=== PATIENT | female | born 1995 | race Caucasian/White ===

== ENCOUNTER 2019-04-13 19:45 | Outpatient (CLI) | payer OTHER ==
[~2019-04-13] VITALS: Ht 162.6 cm; Wt 90.1 kg
[2019-04-13] MEDS ORDERED: ACETAMINOPHEN 500 MG TAB PO STA (20:08)
[2019-04-13 20:16] VITALS: BP 102/61; PULSE 77; RESP 15
--- NOTE | 2019-04-13 22:02 | PN ---
Triage Information Date/Time Reason for visit: Abd/pelvic pain Weeks of Gestation 23-year-old 3 para 2 at 29 weeks and 4 days of gestation with estimated date of delivery June 25, 2019 Patient presents with chief complaint of abdominal pain and back pain Patient reports positive movement, denies vaginal bleeding and leaking fluid, denies uterine contractions /Para 3 para 2 Diabetes: none Hypertention: none Objective Vital Signs Date Temp Pulse Resp B/P (MAP) Pulse Ox O2 O2 Flow FiO2 Time Delivery Rate 04/13/19 98.2 77 15 102/61 Room Air 20:16 (75) Heart Rate: 140's Heart Rate Comments heart rate tracing category 1 Contractions: None Results/Medications Result Diagram: 04/13/192118 Results 24 hrs Laboratory Tests Test 04/13/19 19:45 04/13/19 21:19 Urine Color STRAW Urine Clarity CLEAR Urine pH 7.0 Urine Specific [place] 1.004 Urine Ketones NEGATIVE Urine Nitrite NEGATIVE Urine Bilirubin NEGATIVE Urine Urobilinogen NEGATIVE Urine Leukocyte Esterase 1+ H Urine Microscopic RBC 1 Urine Microscopic WBC 3 Urine Squamous Epithelial Cells FEW Urine Hemoglobin NEGATIVE Urine Glucose NEGATIVE Urine Total Protein NEGATIVE White Blood Count 7.8 Red Blood Count 3.40 L Hemoglobin 10.0 L Hematocrit 30.8 L Mean Corpuscular Volume 90.6 Mean Corpuscular Hemoglobin 29.4 Mean Corpuscular Hemoglobin Concent 32.5 Red Cell Distribution Width 13.0 Platelet Count 156 Mean Platelet Volume 10.4 Immature Granulocytes % 0.900 H Neutrophils % 66.6 Lymphocytes % 25.4 Monocytes % 6.7 Eosinophils % 0.3 Basophils % 0.1 Nucleated Red Blood Cells % 0.0 Immature Granulocytes # 0.070 H Neutrophils # 5.2 Lymphocytes # 2.0 Monocytes # 0.5 Eosinophils # 0.0 Basophils # 0.0 Nucleated Red Blood Cells # 0.0 Imaging Results PROCEDURE: US OB. CLINICAL INDICATION: Size and dates , labor TECHNIQUE: Multiple sonographic images of the pelvis and gravid uterus were obtained. The images were reviewed on a PACS workstation. COMPARISON: No prior studies are available for comparison. FINDINGS: Gestation: Single live intrauterine gestation. Cardiac activity: 140 beats per minute. Presentation: Vertex. Placenta: Location: Anterior. Appearance: No previa or abruption. Measurements: BPD = 8.1 cm, 32 weeks and 4 days HC = 29.3 cm, 32 weeks and 2 days AC = 27.1 cm, 31 weeks and 1 day FL = 5.6 cm, 29 weeks and 2 days Gestational Age: AUA estimated gestational age: 31 weeks 2 days LMP estimated gestational age: 29 weeks 4 days AUA estimated date of delivery: 06/13/19 The EFW = 1645 g, 80.9%ile based on LMP age. RPTAT: AA IMPRESSION: Single live intrauterine gestation of 31 weeks 2 days by ultrasound criteria. .Chencho Asencio MD, MD Date Time Electronically viewed and signed by .Chencho Asencio MD, MD on 04/13/2019 20:44 .S/ CC: KYA HERNANDEZ MD [id number] PROCEDURE: US OB biophysical profile. Ultrasound cervix CLINICAL INDICATION: decreased movements, labor TECHNIQUE: Multiple sonographic images of the pelvis were obtained. In addition, transvaginal images of the cervix were obtained. The images were reviewed on a PACS workstation. COMPARISON: No prior studies are available for comparison. FINDINGS: The cervix measures 3.2 cm in length. There is a single live intrauterine gestation. Cardiac activity is present with 141 beats per minute. There is a vertex presentation. The placenta is anterior. There is no evidence of placental abruption. LADI = 14.9 cm. Biophysical profile: movement 2/2 tone 2/2. breathing 2/2 LADI 2/2 Total 04/05 RPTAT: AA . IMPRESSION: Normal biophysical profile. Cervix measures 3.2 cm in length. .Chencho Asencio MD, MD Date Time Electronically viewed and signed by .Chencho Asencio MD, MD on 04/13/2019 20:57 .S/ CC: KYA HERNANDEZ MD [phone] Disposition: Discharge Assessment/Plan kick count instructions were given Labor precautions were given Patient instructed to follow-up with [facility] in 1 to 2 days KYA HERNANDEZ MD Apr 13, 2019 22:02
== END 2019-04-13 21:45 | disposition home or self-care (01) ==
LOC: OBT 19:45 → L-D 19:47 → OBT 21:45
PROVIDERS: ATTEND Specialist
DX: O26.893 Other specified pregnancy related conditions, third trimester (principal); R10.2 Pelvic and perineal pain; Z3A.29 29 weeks gestation of pregnancy
CPT/HCPCS: 76815; 76817; 76818; 81001; 85025; Z7500; G0463